=== PATIENT | female | born 1995 | race Caucasian/White ===

== ENCOUNTER 2018-09-29 21:31 | Emergency (ER) | payer OTHER ==
[~2018-09-29] VITALS: Ht 160 cm; Wt 99.0 kg
[~2018-09-29 21:31] MED LIST: CEPH-443 PO; IBUP-1542 PO
[2018-09-29 21:32] VITALS: Ht 160 cm; Wt 99.0 kg
--- NOTE | 2018-09-29 23:20 | ERD ---
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 The nail is still connected. No injury to finger. ROS All systems reviewed and are negative except as per history of present illness. Medications Home Meds Active Scripts Ibuprofen* (Motrin*) 600 Mg Tab, 600 MG PO Q6, #30 TAB Prov:SISI KING NP 09/29/18 Cephalexin* (Keflex*) 500 Mg Capsule, 500 MG PO QID for 7 Days, CAP Prov:SISI KING HEALTH SERVICES DIRECTOR 09/29/18 Allergies Allergies: Coded Allergies: No Known Allergy (Unverified , 09/29/18) FmHx Family History: No diabetes, No coronary disease, No other Physical Exam Vitals Vital Signs Date Temp Pulse Resp B/P (MAP) Pulse Ox O2 O2 Flow FiO2 Time Delivery Rate 09/29/18 98.7 79 19 127/77 99 Room Air 23:41 (94) 09/29/18 99.2 87 19 135/78 99 21:32 (97) Physical Exam Const: No acute distress Head: Atraumatic Eyes: Normal Conjunctiva ENT: Normal External Ears, Nose and Mouth. Neck: Full range of motion. No meningismus. Resp: Clear to auscultation bilaterally Cardio: Regular rate and rhythm, no murmurs Ext: No cyanosis, or edema. Right Hand without point tenderness, FROM, sensation intact. 4th finger fingernail with acrylic extension that is not bent or broken and connected/adherent to nail, no bleeding, minor redness at cuticle, no swelling, no drainage, normothermic, tender to touch Psych: Normal Mood and Affect Procedures/MDM This 23 yo female presents with c/o pain to right 4th finger after bending nail back. Physical exam reveals nail that is adherent to nail bed without signs of infection or injury to finger. I discussed options with patient and it was agreed to not try to remove nail as it is currently adherent and without bleeding or swelling. The existing nail will serve as a barrier for the healing skin underneath. Discussion had regarding progression of wound healing that may include eventual loss of existing nail to healing nail underneath. Instructions provided for s/sx of infection and when to seek emergent medical treatment. Finger was placed in protective splint. Departure Diagnosis: Primary Impression: Nail avulsion Condition: Stable Patient Instructions: Nail Avulsion, Partial Referrals: [facility] YOU HAVE RECEIVED A MEDICAL SCREENING EXAM AND THE RESULTS INDICATE THAT YOU DO NOT HAVE A CONDITION THAT REQUIRES URGENT TREATMENT IN THE EMERGENCY DEPARTMENT. FURTHER EVALUATION AND TREATMENT OF YOUR CONDITION CAN WAIT UNTIL YOU ARE SEEN IN YOUR DOCTORS OFFICE WITHIN THE NEXT 1-2 DAYS. IT IS YOUR RESPONSIBILITY TO MAKE AN APPOINTMENT FOR FOLOW-UP CARE. IF YOU HAVE A PRIMARY DOCTOR --you should call your primary doctor and schedule an appointment IF YOU DO NOT HAVE A PRIMARY DOCTOR YOU CAN CALL OUR PHYSICIAN REFERRAL HOTLINE AT IF YOU CAN NOT AFFORD TO SEE A PHYSICIAN YOU CAN CHOSE FROM THE FOLLOWING [facility] [address] [facility]. [facility] [address] [facility] [facility] [address] [facility] [address] [facility] [facility] [facility] [address] [facility]. [facility]. [address] Additional Instructions: Thank you very much for allowing us to participate in your care. Your health and safety is our top priority at [facility]. Call your primary care doctor TOMORROW for an appointment during the next 2-4 days and bring all the information and medications prescribed. Have prescriptions filled and follow precisely the directions on the label. If the symptoms get worse and your provider is unavailable, return to the Emergency Department immediately. SISI KING NP Sep 29, 2018 23:20
[2018-09-29 23:41] VITALS: BP 127/77; PULSE 79; RESP 19
== END 2018-09-29 23:42 | disposition home or self-care (01) ==
LOC: FTE 21:31
DX: S61.300A Unspecified open wound of right index finger with damage to nail, initial encounter (principal); W22.8XXA Striking against or struck by other objects, initial encounter; Y92.9 Unspecified place or not applicable
CPT/HCPCS: 29130; Z7502